=== PATIENT | female | born 2000 | race African-American/Black ===

== ENCOUNTER 2023-06-20 12:00 | Inpatient (IN) | payer OTHER ==
[2023-06-20] MEDS: ELECTROLYTE-148 SOLN 1,000 ML IV SCH (12:45)
[2023-06-20 12:55] LABS: BASO % 0.6 % (0-2.0); EOS % 0.5 % (0-4.5); HEMATOCRIT 44.5 % (32.4-45.2); HEMOGLOBIN 15.1 GM/dL (10.7-15.3); LYMPH % 35.4 % (8-40); MCH 31.5 pg (25.7-33.7); MCHC 33.9 g/dl (32.0-36.0); MEAN CELL VOLUME 92.8 fl (80-96); MEAN PLT VOLUME 9.5 fl (7.5-11.1); MONO % 12.7 % (3.8-10.2); NEUT % 50.8 % (42.8-82.8); PLATELET COUNT 188 10^3/uL (134-434); RBC 4.79 M/mm3 (3.60-5.2); RDW 14.8 % (11.6-15.6); WHITE BLOOD COUNT 8.8 K/mm3 (4.0-10.0)
[2023-06-20 13:02] VITALS: BMI 32.5
[2023-06-20 13:04] LABS: PROTHROMBIN TIME (PATIENT) 11.3 SEC (9.7-13.0)
[2023-06-20 13:06] LABS: ACTIVATED PTT 28.4 SECONDS (25.2-36.5)
[2023-06-20 13:13] LABS: POTASSIUM 3.8 mmol/L (3.5-5.1)
[2023-06-20 13:14] LABS: CALCIUM 8.9 mg/dL (8.5-10.1)
[2023-06-20] MEDS ORDERED: OXYTOCIN 20 UNITS in 0.9% NS 20 UNIT/1,000 ML INFUS.BAG IV ONE (13:14)
[2023-06-20 13:15] LABS: BLOOD UREA NITROGEN 6.6 mg/dL (7-18)
[2023-06-20 13:18] LABS: CREATININE 0.6 mg/dL (0.55-1.3)
[2023-06-20] MEDS: OXYTOCIN 20 UNITS in 0.9% NS 20 UNIT/1,000 ML INFUS.BAG IV SCH (13:45)
[2023-06-20] MEDS ORDERED: BENZOCAINE 28 GM HEMORRHOIDAL OINTMENT TP PRN (14:02)
[2023-06-20] MEDS ORDERED: WITCH HAZEL 50% (TUCKS) 40 PAD/JAR PAD TP PRN (14:02)
[2023-06-20] MEDS ORDERED: METHYLERGONOVINE MALEATE 0.2 MG/1 ML AMP IM PRN (14:02)
[2023-06-20] MEDS ORDERED: BENZOCAINE 20% 57 GM BOTTLE TP PRN (14:02)
[2023-06-20] MEDS ORDERED: BISACODYL 10 MG SUPP.RECT RC PRN (14:02)
[2023-06-20] MEDS: IBUPROFEN 600 MG TABLET (FP) PO PRN (21:26)
[2023-06-21 07:24] LABS: BASO % 0.3 % (0-2.0); EOS % 0.7 % (0-4.5); HEMATOCRIT 39.7 % (32.4-45.2); HEMOGLOBIN 13.5 GM/dL (10.7-15.3); LYMPH % 24.3 % (8-40); MCH 31.9 pg (25.7-33.7); MEAN CELL VOLUME 93.8 fl (80-96); MEAN PLT VOLUME 9.8 fl (7.5-11.1); MONO % 9.6 % (3.8-10.2); NEUT % 65.1 % (42.8-82.8); PLATELET COUNT 183 10^3/uL (134-434); RBC 4.24 M/mm3 (3.60-5.2); RDW 15.2 % (11.6-15.6); WHITE BLOOD COUNT 14.5 K/mm3 (4.0-10.0)
[2023-06-21] MEDS: PRENATAL VITAMINS W/ FOLIC ACID TABLET (FP) PO SCH (09:21)
[2023-06-21] MEDS: FERROUS SO4 325 MG TABLET (FP) PO SCH (09:21)
[2023-06-21] MEDS: DIPHTH,PERTUSS(ACELL),TET 0.5 ML DISP.SYRIN IM ONE (10:09)
[2023-06-21] MEDS: ACETAMINOPHEN 325 MG TABLET (FP) PO PRN (20:02)
[2023-06-21] MEDS ORDERED: SENNOSIDES/DOCUSATE COMBO (SENNA PLUS) TABLET (UD) PO PRN (22:00)
[2023-06-21 22:17] VITALS: RESP 18; TEMP 97.8
[2023-06-22 10:44] VITALS: BP 110/72; PULSE 93
== END 2023-06-22 17:50 | disposition home or self-care (01) | DRG 560 ==
LOC: JDEL 12:00 → JLDR 12:01 → J3W 16:03
PROVIDERS: ADMIT Obstetrics & Gynecology; ATTEND Obstetrics & Gynecology
PROC: 10E0XZZ Delivery of Products of Conception, External Approach (ICD-10-PCS; principal; 2023-06-20)
PROC: 0KQM0ZZ Repair Perineum Muscle, Open Approach (ICD-10-PCS; 2023-06-20)
PROC: 0W8NXZZ Division of Female Perineum, External Approach (ICD-10-PCS; 2023-06-20)
DX: O24.424 Gestational diabetes mellitus in childbirth, insulin controlled (principal); O70.1 Second degree perineal laceration during delivery; Z3A.37 37 weeks gestation of pregnancy; Z37.0 Single live birth
CPT/HCPCS: 36415; 80048; 85025; 85610; 85730; 86850; 86900; 86901; 90715